=== PATIENT | male | born 1960 | race African-American/Black ===

== ENCOUNTER 2020-07-18 18:49 | Inpatient (IN) | payer SELFPAY ==
[~2020-07-18] VITALS: Ht 170.2 cm; Wt 98.7 kg
[2020-07-18] MEDS ORDERED: IPRATROPIUM BROMIDE (0.02%) 0.5MG/2.5ML NEB HHN STA (18:52)
[2020-07-18] MEDS ORDERED: ALBUTEROL (0.083%) 2.5MG/3ML NEB HHN STA (18:52)
[2020-07-18] MEDS ORDERED: METHYLPREDNISOLONE SOD SUCC 125 MG/2 ML VIAL IV STA (18:52)
[2020-07-18] MEDS ORDERED: MAGNESIUM 2 G PREMIX 50 ML IV ONE (19:00)
[2020-07-18] MEDS ORDERED: EPINEPHRINE 1:1000 1 MG/ML AMP INJ ONE (19:00)
[2020-07-18] MEDS ORDERED: ASPIRIN 81MG TABLET PO ONE (19:00)
[2020-07-18 19:42] LABS: HEMOGLOBIN. 15.7 g/dL (14.0-18.0); MEAN CORPUSCULAR VOLUME 102.2 fL (80.0-94.0); PLATELET 285 x1000/uL (130-400); RED CELL DISTRIBUTION WIDTH 13.1 % (11.6-14.6)
[2020-07-18 19:47] LABS: CHLORIDE 105 mEq/L (98-107)
[2020-07-18 20:05] LABS: INR 1.1; PROTHROMBIN TIME 11.3 sec (9.6-11.0)
[2020-07-18 22:33] LABS: PLATELET ESTIMATE NORMAL
[2020-07-18 22:39] LABS: BG BASE EXCESS 0.7 mmol/L (-2.0-2.0); BG CARBOXYHEMOGLOBIN 0.4 % (0.5-1.5); BG DEOXYHEMOGLOBIN 4.3 % (0.0-5.0); BG FRACTION INSPIRED OXYGEN 28; BG HCO3 ACT 25.2 mmol/L (22.0-26.0); BG METHEMOGLOBIN 0.4 % (0.0-1.5); BG OXYGEN SATURATION 95.7 % (92.0-98.5); BG OXYHEMOGLOBIN 94.9 % (94.0-97.0); BG PCO2 40.1 mmHg (35.0-45.0); BG PH 7.416 (7.350-7.450); BG PO2 81.7 mmHg (75.0-100.0); BG SAMPLE SITE RIGHT RADIAL; BG TOTAL HEMOGLOBIN 16.3 g/dL (12.0-18.0); BG VENT MODE NASAL CANNULA
[2020-07-19] VITALS (14 sets, daily range): BP systolic 112–149; BP diastolic 71–103
[2020-07-19] MEDS ORDERED: IPRATROPIUM/ALBUTEROL 0.5-3(2.5)MG/3ML NEB HHN PRN (01:15)
[2020-07-19] MEDS ORDERED: LORAZEPAM 0.5MG TABLET PO PRN (01:15)
[2020-07-19] MEDS ORDERED: albuterol INH (04:25)
[2020-07-19] MEDS ORDERED: PRIMACOR (04:26)
[2020-07-19] MEDS: METHYLPREDNISOLONE SOD SUCC 40 MG/ML VIAL IV SCH ×4 (05:28→23:26)
[2020-07-19] MEDS ORDERED: FLUT1DIS6 INH (08:26)
[2020-07-19] MEDS ORDERED: ENOXAPARIN 40MG/0.4ML SYR SUBCUT SCH (09:00)
[2020-07-19] MEDS ORDERED: METOPROLOL TARTRATE 50MG TABLET PO NR (12:00)
[2020-07-19] MEDS ORDERED: IPRATROPIUM BROMIDE (0.02%) 0.5MG/2.5ML NEB HHN PRN (12:00)
[2020-07-19] MEDS: ENOXAPARIN 30MG/0.3ML SYR SUBCUT SCH ×2 (13:30→20:22)
[2020-07-19] MEDS ORDERED: ALBU18HF2 IH (15:18)
[2020-07-19] MEDS ORDERED: P20 MT (15:18)
[2020-07-19] MEDS ORDERED: FLUT1DIS3 INH (15:18)
[2020-07-19] MEDS ORDERED: MONTELUKAST SODIUM 10MG TABLET PO SCH (17:00)
[2020-07-19] MEDS: IPRATROPIUM BROMIDE (0.02%) 0.5MG/2.5ML NEB HHN SCH ×3 (18:26→23:45)
[2020-07-20] VITALS (8 sets, daily range): BP systolic 106–122; BP diastolic 65–84
[2020-07-20] MEDS: IPRATROPIUM BROMIDE (0.02%) 0.5MG/2.5ML NEB HHN SCH ×3 (04:25→12:28)
[2020-07-20] MEDS: METHYLPREDNISOLONE SOD SUCC 40 MG/ML VIAL IV SCH ×2 (05:08→12:21)
[2020-07-20] MEDS: ENOXAPARIN 30MG/0.3ML SYR SUBCUT SCH (08:55)
[2020-07-20] MEDS ORDERED: GUAI600T26 MT (09:56)
== END 2020-07-20 12:50 | disposition home or self-care (01) | DRG 663 ==
LOC: ER 18:49 → 3WST 22:15 → EDBEDREQTM 22:17 → EDBEDREQ 22:17 → ENRESERV 22:35
PROVIDERS: ADMIT Internal Medicine; ATTEND Internal Medicine
PROC: 5A09357 Assistance with Respiratory Ventilation, Less than 24 Consecutive Hours, Continuous Positive Airway Pressure (ICD-10-PCS; principal; 2020-07-18)
DX: D72.10 Eosinophilia, unspecified (principal); J96.00 Acute respiratory failure, unspecified whether with hypoxia or hypercapnia; J45.901 Unspecified asthma with (acute) exacerbation; J45.902 Unspecified asthma with status asthmaticus; I10 Essential (primary) hypertension; R74.01 Elevation of levels of liver transaminase levels; Z79.899 Other long term (current) drug therapy
CPT/HCPCS: 36415; 36600; 71045; 80053; 82375; 82805; 83880; 84484; 85025; 93005; 94640; 94660; 99291; J1650; J2920; J2930; J3475; J3490